=== PATIENT | female | born 2000 | race Two or more races ===

== ENCOUNTER 2025-04-11 19:24 | Emergency (ER) | payer BC ==
--- NOTE | 2025-04-11 20:11 | ER ---
Nurse's Notes [facility] Name: Judith Pate Age: 24 yrs Sex: Female : 2000 Arrival Date: 04/11/2025 Time: 19:24 Bed 19 Private MD: Diagnosis: Impacted cerumen, right ear Presentation: 04/11 19:46 Chief complaint: Patient states: RT EAR FEELS CLOGGED, RINGING CONSTANTLY AND DECREASED dd2 HEARING. Coronavirus screen: At this time, the client does not indicate any symptoms associated with coronavirus-19. Ebola Screen: No symptoms or risks identified at this time. Initial Sepsis Screen: Does the patient meet any 2 criteria? No. Patient's initial sepsis screen is negative. Does the patient have a suspected source of infection? No. Patient's initial sepsis screen is negative. Risk Assessment: Do you want to hurt yourself or someone else? Patient reports no desire to harm self or others. Onset of symptoms was April 06, 2025. 19:46 Method Of Arrival: Ambulatory dd2 19:46 Acuity: SIMI 4 dd2 Triage Assessment: 19:48 General: Appears in no apparent distress. Behavior is calm, cooperative, appropriate dd2 for age. Pain: Denies pain. EENT: Reports decreased hearing in right ear ringing in right ear. 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 - Infectious Disease History:: Denies. - Social history:: Smoking status: Patient denies any tobacco usage or history of. Screenin:00 [facility] ED Fall Risk Assessment (Adult) History of falling in the last 3 months, bm8 including since admission No falls in past 3 months (0 pts) Confusion or Disorientation No (0 pts) Intoxicated or Sedated No (0 pts) Impaired Gait No (0 pts) Mobility Assist Device Used No (0 pt) Altered Elimination No (0 pt) Score/Fall Risk Level 0 - 2 = Low Risk Oriented to surroundings, Maintained a safe environment, Educated pt \T\ family on fall prevention, incl call for assistance when getting out of bed, Assessed \T\ reinforced patient's understanding of fall precautions, Hourly rounding (assess needs \T\ fall precautionary measures) done, Used ambulatory aids as needed (educated on \T\ assisted with), Used gait belt as appropriate. Abuse screen: Denies threats or abuse. Nutritional screening: No deficits noted. Tuberculosis screening: No symptoms or risk factors identified. Assessment: 20:00 General: Appears in no apparent distress. comfortable, Behavior is calm, cooperative, bm8 appropriate for age. EENT: Ear canal clogged with ear wax unable to see tympanic membrane. 20:15 Reassessment: Patient appears in no apparent distress at this time. Patient and/or bm8 family updated on plan of care and expected duration. Pain level reassessed. Patient is alert, oriented x 3, equal unlabored respirations, skin warm/dry/pink. problem resolved Patient denies pain at this time. Patient states feeling better. Patient states symptoms have improved. Vital Signs: 19:46 BP 146 / 103; Pulse 77; Resp 16; Temp 97.9; Pulse Ox 100% ; Weight 119.75 kg; Height 5 dd2 ft. 4 in. ; Pain 0/10; 20:15 BP 138 / 91; Pulse 74; Resp 19; Temp 97; Pulse Ox 100% ; Pain 0/10; bm8 19:46 Body Mass Index 45.32 (119.75 kg, 162.56 cm) dd2 19:46 Pain Scale: Adult dd2 20:15 Pain Scale: Adult bm8 [place] Coma Score: 20:00 Eye Response: spontaneous(4). Motor Response: obeys commands(6). Verbal Response: bm8 oriented(5). Total: 15. 20:15 Eye Response: spontaneous(4). Motor Response: obeys commands(6). Verbal Response: bm8 oriented(5). Total: 15. ED Course: 19:28 Patient arrived in ED. im 19:29 Surya Caldwell DO is Attending Physician. ms3 19:48 Triage completed. dd2 19:48 Arm band placed on right wrist. dd2 19:54 Jordan An, RN is Primary Nurse. bm8 20:00 Patient has correct armband on for positive identification. Bed in low position. Call bm8 light in reach. Side rails up X 1. Client placed on continuous cardiac and pulse oximetry monitoring. NIBP monitoring applied. Pulse ox on. NIBP on. Door closed. Noise minimized. Pillow given. Verbal reassurance given. Head of bed elevated. 20:00 Assisted provider with: flushing out right ear. Patient did not have IV access during bm8 this emergency room visit. Patient maintains SpO2 saturation greater than 95% on room air. 20:11 Dandre Villanueva DO is Referral Physician. ms3 20:15 Patient is placed in psych hold. RME completed by post er care, when to visit emergency bm8 room. 20:17 Provided Education on: post er care, when to visit emergency room. bm8 Administered Medications: No medications were administered Medication: 20:00 VIS not applicable for this client. bm8 Outcome: 20:11 Discharge ordered by . ms3 20:15 Discharged to home ambulatory, bm8 20:15 Condition: stable 20:15 Discharge instructions given to patient, Instructed on discharge instructions, follow up and referral plans. safety practices, Demonstrated understanding of instructions, follow-up care, medications, 20:18 Patient left the ED. bm8 Signatures: Surya Caldwell DO DO ms3 Maya Wylie Brad, RN RN bm8 [employer], RN RN dd2
--- NOTE | 2025-04-11 20:11 | EDPHYS ---
Physician Documentation [facility] Name: Judith Pate Age: 24 yrs Sex: Female : 2000 Arrival Date: 04/11/2025 Time: 19:24 Bed 19 Private MD: ED Physician Surya Caldwell HPI: 04/11 20:41 This 24 yrs old Female presents to ER via Ambulatory with complaints of Ear Pain. ms3 20:41 24-year-old female with no past medical history presents to the emergency department ms3 for right ear pressure hearing that began on Sunday. Patient denies pain. Patient denies fever or chills. Patient states she has a history of wax buildup in her left ear. 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 - Infectious Disease History:: Denies. - Social history:: Smoking status: Patient denies any tobacco usage or history of. ROS: 20:41 Constitutional: Negative for fever, and chills. Cardiovascular: Negative for chest ms3 pain, and palpitations. Respiratory: Negative for shortness of breath, cough, wheezing, and pleuritic chest pain, Abdomen/GI: Negative for abdominal pain, nausea, vomiting, diarrhea, and constipation, 20:41 ENT: Positive for Decreased hearing right ear, pressure right ear, Exam: 20:41 Constitutional: This is a well developed, well nourished patient who is awake, alert, ms3 and in no acute distress. 20:41 Cardiovascular: Regular rate and rhythm with a normal S1 and S2. No gallops, murmurs, or rubs. Normal PMI, no JVD. No pulse deficits. Respiratory: Lungs have equal breath sounds bilaterally, clear to auscultation and percussion. No rales, rhonchi or wheezes noted. No increased work of breathing, no retractions or nasal flaring. Abdomen/GI: Soft, non-tender, with normal bowel sounds. No distension or tympany. No guarding or rebound. No evidence of tenderness throughout. 20:41 ENT: Ear canal(s): cerumen impaction, that is moderate, occluding the right ear canal, TM's: are normal, Vital Signs: 19:46 BP 146 / 103; Pulse 77; Resp 16; Temp 97.9; Pulse Ox 100% ; Weight 119.75 kg; Height 5 dd2 ft. 4 in. ; Pain 0/10; 20:15 BP 138 / 91; Pulse 74; Resp 19; Temp 97; Pulse Ox 100% ; Pain 0/10; bm8 19:46 Body Mass Index 45.32 (119.75 kg, 162.56 cm) dd2 19:46 Pain Scale: Adult dd2 20:15 Pain Scale: Adult bm8 [place] Coma Score: 20:00 Eye Response: spontaneous(4). Motor Response: obeys commands(6). Verbal Response: bm8 oriented(5). Total: 15. 20:15 Eye Response: spontaneous(4). Motor Response: obeys commands(6). Verbal Response: bm8 oriented(5). Total: 15. Procedures: 20:12 Ear irrigation: Route right ear with Other Water and Hydrogen peroxide amount 500ml ms3 Patient tolerated well. MDM: 19:47 Medical Screening Exam initiated ms3 20:41 Differential diagnosis: acute otalgia, cerumen impaction. Data reviewed: vital signs, ms3 nurses notes, and as a result, I will discharge patient. Counseling: I had a detailed discussion with the patient and/or guardian regarding the historical points, exam findings, and any diagnostic results supporting the discharge/admit diagnosis, the need for outpatient follow up, to return to the emergency department if symptoms worsen or persist or if there are any questions or concerns that arise at home. Special discussion: I discussed with the patient/guardian in detail that at this point there is no indication for admission to the hospital. It is understood, however, that if the symptoms persist or worsen the patient needs to return immediately for re-evaluation. ED course: Right ear irrigated with removal of cerumen impaction. Patient to follow-up with primary care physician 2 to 3 days. Patient understands agrees to plan Peto questions were answered. Return precautions discussed include worsening symptoms, or any other concerns.. Administered Medications: No medications were administered Disposition Summary: 04/11/25 20:11 Discharge Ordered Notes: Location: Home ms3 Condition: Stable ms3 Diagnosis - Impacted cerumen, right ear ms3 Followup: ms3 - With: Dandre Villanueva DO - When: 2 - 3 days - Reason: Recheck today's complaints Discharge Instructions: - Discharge Summary Sheet ms3 - Earwax Buildup, Adult ms3 - Ear Irrigation ms3 Forms: - Medication Reconciliation Form ms3 - Antibiotic Education ms3 - Prescription Opioid Use ms3 - Patient Portal Instructions ms3 - Leadership Thank You Letter ms3 Signatures: Surya Caldwell DO DO ms3 [employer] RN RN dd2
[2025-04-12 03:35] VITALS: O2SAT 100
[2025-04-12 03:37] VITALS: BP 138/91; TEMP 97
== END 2025-04-11 20:18 | disposition home or self-care (01) ==
LOC: ER 19:24
PROC: 3E1B78Z Irrigation of Ear using Irrigating Substance, Via Natural or Artificial Opening (ICD-10-PCS; principal; 2025-04-11)
DX: H61.21 Impacted cerumen, right ear (principal)
CPT/HCPCS: 99283